=== PATIENT | female | born 2005 | race Caucasian/White ===

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

== ENCOUNTER 2024-04-29 15:50 | Outpatient (REF) | payer OTHER, SELFPAY ==
--- NOTE | 2024-04-29 15:40 | PAPFT_PTH ---
PATIENT: Thalia Cruz LOC: [facility] U#:[id number] AGE/SX: 19/F ROOM: RE04/29/[address]: Priya Madrigal NP : 2005 BED: DIS: 04/29/2024 SPEC #: [id number] RECD: 04/29/24 17:46 STATUS: DEVAN KHAN #: [id number] MARLA: 04/29/24 15:[address]: Priya Madrigal NP DEPT: [facility] Cytology RECD BY: Raysa Hogan ENTERED: 04/29/24 17:46 SP TYPE: PAPFT OTHR DR: Nallely Almonte MD Tissues: 1 - CX/ENDOCX FOR PAP SMEARS Procedures: PAP THIN PREP/UVM Screening Comments: [id number]
== END 2024-04-29 15:51 | disposition home or self-care (01) ==
LOC: LBN 15:50
PROVIDERS: PCP Student in an Organized Health Care Education/Training Program; Visit Provider Nurse Practitioner Women's Health
DX: Z12.4 Encounter for screening for malignant neoplasm of cervix (principal)
CPT/HCPCS: 88142